=== PATIENT | female | born 1950 | race Two or more races ===

== ENCOUNTER 2024-05-24 14:31 | Emergency (ER) | payer MEDICARE, OTHER ==
[~2024-05-24] VITALS: Ht 157.5 cm; Wt 68.3 kg
--- NOTE | 2024-05-24 14:55 | ED.PDOC ---
History of Present Illness HPI Comments 74-year-old female came to the ER because she was having urinary frequency hesitation. While driving to come to the she started have chest pain was started on mid epigastric region radiate to the shoulder. Patient states that it was sharp. Denies nausea vomiting sweating. She continues to have chest discomfort in the emergency room. She does have a history of hypertension for which she takes amlodipine. Denies any other symptoms. Chief Complaint: Chest Pain Time Seen by MD: 14:35 Primary Care Provider: LANG Reviewed Notes: Nurses Notes, Medications, Allergies Information Source: Patient Mode of Arrival: Ambulatory Severity: Moderate Timing: Hours Duration: Since onset Past Medical History PAST MEDICAL HISTORY: HTN Surgical History: MINE ENVIRONMENTAL ENGINEER History: No Pertinent MINE ENVIRONMENTAL ENGINEER History Family History Family History: Unknown Social History Smoker: Non-Smoker Alcohol: Denies ETOH Use Drugs: Denies Drug Use Lives In: Home Constitutional: denies: chills, diaphoresis, fatigue, fever, malaise, sweats, weakness, others EENTM: denies: blurred vision, double vision, ear bleeding, ear discharge, ear drainage, ear pain, ear ringing, eye pain, eye redness, hearing loss, mouth pain, mouth swelling, nasal discharge, nose bleeding, nose congestion, nose pain, photophobia, tearing, throat pain, throat swelling, voice changes, others Respiratory: denies: cough, hemoptysis, orthopnea, SOB at rest, shortness of breath, SOB with excertion, stridor, wheezing, others Cardiovascular: reports: chest pain; denies: dizzy spells, diaphoresis, Dyspnea on exertion, edema, irregular heart beat, left arm pain, lightheadedness, palpitations, PND, syncope, others Gastrointestinal: denies: abdomen distended, abdominal pain, blood streaked bowels, constipated, diarrhea, dysphagia, difficulty swallowing, hematemesis, melena, nausea, poor appetite, poor fluid intake, rectal bleeding, rectal pain, vomiting, others Genitourinary: reports: dysuria; denies: abnormal vagina bleeding, burning, dyspareunia, flank pain, frequency, hematuria, incontinence, pain, , vagina discharge, urgency, others Neurological: denies: dizziness, fainting, headache, left sided numbness, left sided weakness, numbness, paresthesia, pre-existing deficit, right sided numb ness, right sided weakness, seizure, speech problems, tingling, tremors, weakness, others Musculoskeletal: denies: back pain, gout, joint pain, joint swelling, muscle pain, muscle stiffness, neck pain, others Integumetry: denies: bruises, change in color, change in hair/nails, dryness, laceration, lesions, lumps, rash, wounds, others Allergic/Immunocompromised: denies: Difficulty Healing, Frequent Infections, Hives, Itching, others Hematologic/Lymphatic: denies: anemia, blood clots, easy bleeding, easy bruising, swollen glands, others Endocrine: denies: excessive hunger, excessive sweating, excessive thirst, excessive urination, flushing, intolerance to cold, intolerance to heat, unexplained weight gain, unexplained weight loss, others Psychiatric: denies: anxiety, bipolar disorder, depression, hopeless, panic disorder, schizophrenia, sleepless, suicidal, others Physical Exam General Appearance: Moderate Distress HEENT: Normal ENT Inspection, Pharynx Normal, TMs Normal Neck: Full Range of Motion, Non-Tender, Normal, Normal Inspection Respiratory: Chest Non-Tender, Lungs Clear, No Accessory Muscle Use, No Respiratory Distress, Normal Breath Sounds Cardiovascular: No Edema, No JVD, No Murmur, No Gallop, Normal Peripheral Pulses, Regular Rate/Rhythm Breast Exam: Deferred Gastrointestinal: No Organomegaly, Non Tender, No Pulsatile Mass, Normal Bowel Sounds, Soft Genitalia: Deferred Pelvic: Deferred Rectal: Deferred Extremities: No calf tenderness, Normal capillary refill, Normal inspection, Normal range of motion, Non-tender, No pedal edema Musculoskeletal : Apperance: Normal Neurologic: Alert, electrical system specialist II-XII nml as Tested, No Motor Deficits, Normal Affect, Normal Mood, No Sensory Deficits Cerebellar Function: NOT DONE Reflexes: NOT DONE Skin: Dry, Normal Color, Warm Peripheral Pulses: 3+ Radial (R), 3+ Radial (L) Lymphatic: No Adenopathy Was a procedure done? Was a procedure done?: No Differential Dx Considerations may include: Anemia Electrolyte imbalance X-Ray, Labs, Meds, VS Patient alert. Complaining of chest pain. Vitals stable. Answering all questions. EKG reviewed does not show any acute changes. Was given aspirin. Was given nitro. Reviewed her previous visit. Explained to the patient. Continue cardiac monitoring. Time of 1ST Reevaluation: 14:53 Reevaluation 1ST: Unchanged Patient Education/Counseling: Diagnosis, Treatment, Prognosis Family Education/Counseling: No Family Present Departure 1 Departure Time of Disposition: 14:54 Impression: Primary Impression: Chest pain of unknown etiology Disposition: 09 ADMITTED INPATIENT Admit to: Med Surg Condition: Guarded Critical Care Note Critical Care Time?: Yes (45 min-critical care time only) Stability Stability form required: No Heart Score Heart Score: Heart Score Response (Comments) Value History Slightly Suspicious 0 EKG Normal 0 Age >65 2 Risk Factors >3 or Hx ASHD 2 Troponin Normal limit 0 Total 4 FRANSISCA ZHANG MD May 24, 2024 14:55
[2024-05-24 15:09] LABS: Basophils # (auto) 0.1 10 ^3/uL (0-0.2); Basophils % (auto) 0.8 % (0.0-2.0); Eosinophils # (auto) 0.3 10 ^3/uL (0-0.8); Eosinophils % (auto) 4.1 % (0.0-7.0); Hematocrit 40.8 % (36.0-46.0); Hemoglobin 13.7 g/dL (12.2-16.2); Lymphocytes # (auto) 2.1 10 ^3/uL (0.4-5.4); Lymphocytes % (auto) 28.3 % (10.0-50.0); Mean Corpuscular Hemoglobin 30.3 pg (28.0-32.0); Mean Corpuscular Hgb Conc. 33.5 g/dL (32.0-36.0); Mean Corpuscular Volume 90.2 fL (80.0-100.0); Monocytes # (auto) 0.9 10 ^3/uL (0-1.3); Neutrophils % (auto) 54.8 % (37.0-80.0); Nucleated Red Blood Cells % 0.1 %; Platelet Count (auto) 278 10^3/uL (140-450); Red Blood Cells 4.52 10^6/uL (4.0-5.20); Red Cell Distribution Width 13.7 % (11.8-14.3); White Blood Cell 7.3 10^3/uL (4.4-10.8)
[2024-05-24 15:28] LABS: Urine Bacteria None Seen /hpf (None Seen)
[2024-05-24 15:31] LABS: Chloride 107 mmol/L (98-107); Potassium 4.4 mmol/L (3.5-5.1)
[2024-05-24 15:33] LABS: Calcium 9.7 mg/dL (8.7-10.4); Carbon Dioxide 25 mmol/L (20-31)
[2024-05-24 15:38] LABS: Blood Urea Nitrogen 17 mg/dL (9-23); Glucose 98 mg/dL (74-106)
[2024-05-24 15:41] LABS: Urine Blood Negative /uL (Negative); Urine Clarity Clear (Clear); Urine Color Yellow (Yellow); Urine Mucus FEW (None Seen); Urine Protein, UAD Negative (Negative); Urine Specific Gravity 1.023 (1.001-1.035); Urine Urobilinogen Normal (Negative); Urine WBC 11 /hpf (0 - 5)
[2024-05-24] MEDS: NITROGLYCERIN 0.4 MG SL TAB SL ONE (16:26)
[2024-05-24 16:27] VITALS: BP 129/61; TEMP 97.8
[2024-05-24 16:28] LABS: Anion Gap 6 (5-15); Sodium 138 mmol/L (136-145)
[2024-05-24] MEDS: ASPirin 325 MG TAB PO ONE (16:29)
[2024-05-24 16:32] VITALS: PULSE 75; RESP 18; O2SAT 97
--- NOTE | 2024-05-25 14:42 | ECG ---
[facility] Test Date: 2024-05-24 Test Time: 14:41:02 Pat Name: EBST CARLISLE Department: ER Room: Gender: F Seal Skinner: NATALIE : 1950 Requested By: FRANSISCA ZHANG Order Number: [id number] Reading MD: Measurements Intervals [place] Rate: 70 P: 35 MI: 137 QRS: -10 QRSD: 97 T: 36 QT: 411 QTc: 444 Interpretive Statements Sinus rhythm Abnormal R-wave progression, early transition Borderline T wave abnormalities Please click the below link to view image of tracing.
--- NOTE | 2024-05-25 14:43 | ECG ---
[facility] Test Date: 2024-05-24 Test Time: 15:37:50 Pat Name: BEST CARLISLE Department: ER Room: Gender: F Diet Supervisor: SAFIA : 1950 Requested By: FRANSISCA ZHANG Order Number: [id number] Reading MD: Measurements Intervals [place] Rate: 73 P: 54 WI: 135 QRS: -11 QRSD: 93 T: 41 QT: 396 QTc: 437 Interpretive Statements Sinus rhythm Abnormal R-wave progression, early transition Borderline T wave abnormalities Please click the below link to view image of tracing.
== END 2024-05-24 20:40 | disposition left against medical advice (07) ==
LOC: ER 14:31
DX: R07.89 Other chest pain (principal); I10 Essential (primary) hypertension; Z98.890 Other specified postprocedural states
CPT/HCPCS: 36415; 80048; 81001; 84484; 85025; 93005